=== PATIENT | female | born 1965 | race Hispanic/Latino ===

== ENCOUNTER 2018-08-29 01:33 | Emergency (ER) | payer SELFPAY ==
[2018-08-29] MEDS ORDERED: Acetaminophen 500 MG TAB ONE (03:02)
[2018-08-29] MEDS ORDERED: Ibuprofen 800 MG TAB ONE (03:05)
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
== END 2018-08-29 03:27 | disposition home or self-care (01) ==
LOC: ERS 01:33
DX: S05.11XA Contusion of eyeball and orbital tissues, right eye, initial encounter (principal); I10 Essential (primary) hypertension; G43.909 Migraine, unspecified, not intractable, without status migrainosus; Y04.0XXA Assault by unarmed brawl or fight, initial encounter
CPT/HCPCS: 70450; 70486

== ENCOUNTER 2019-05-15 18:35 | Emergency (ER) | payer BC ==
[2019-05-15] MEDS ORDERED: Ibuprofen 200 MG TAB ONE (19:33)
== END 2019-05-15 20:53 | disposition home or self-care (01) ==
LOC: ERS 18:35
DX: J10.1 Influenza due to other identified influenza virus with other respiratory manifestations (principal)
CPT/HCPCS: 87804; 99283

== ENCOUNTER 2020-10-11 08:02 | Outpatient (CLI) | payer BC ==
[2020-10-11] MEDS ORDERED: Magnevist 469MG/ML 20 ML VIAL ONE (15:09)
== END 2020-10-11 08:03 | disposition home or self-care (01) ==
LOC: BICMRI 08:02
PROVIDERS: ATTEND Physician Assistant Medical
DX: K74.60 Unspecified cirrhosis of liver (principal); R10.11 Right upper quadrant pain; I85.10 Secondary esophageal varices without bleeding; K76.6 Portal hypertension; R16.1 Splenomegaly, not elsewhere classified
CPT/HCPCS: 74183; A9579

== ENCOUNTER 2021-06-18 08:13 | Outpatient (CLI) | payer OTHER | END 2021-06-18 08:14 | disposition home or self-care (01) | LOC: BICRAD 08:13 | PROVIDERS: ATTEND Chiropractor | DX: M25.552 Pain in left hip (principal); M47.816 Spondylosis without myelopathy or radiculopathy, lumbar region | CPT/HCPCS: 72100 ==

== ENCOUNTER 2021-12-07 08:27 | Emergency (ER) | payer BC, SELFPAY ==
[2021-12-07] MEDS ORDERED: Ketorolac Tromethamine 30 MG/ML VIAL ONE (09:33)
== END 2021-12-07 09:42 | disposition home or self-care (01) ==
LOC: ERS 08:27
DX: M25.561 Pain in right knee (principal); I10 Essential (primary) hypertension
CPT/HCPCS: 96372; J1885

== ENCOUNTER 2022-01-12 21:49 | Emergency (ER) | payer OTHER, SELFPAY ==
[2022-01-12] MEDS ORDERED: Ondansetron ODT 4 MG TAB ONE (22:08)
== END 2022-01-12 22:49 | disposition home or self-care (01) ==
LOC: ERS 21:49
DX: S00.03XA Contusion of scalp, initial encounter (principal); S06.0X0A Concussion without loss of consciousness, initial encounter; W01.10XA Fall on same level from slipping, tripping and stumbling with subsequent striking against unspecified object, initial encounter
CPT/HCPCS: 70450; Q0162

== ENCOUNTER 2022-02-12 21:10 | Emergency (ER) | payer SELFPAY ==
[2022-02-12] MEDS ORDERED: HYDROcodone/Acetaminophen 10/325 mg Tablet ONE (22:32)
[2022-02-12] MEDS ORDERED: Bacitracin 1 PK ONE (23:18)
== END 2022-02-12 23:32 | disposition home or self-care (01) ==
LOC: ERS 21:10
DX: T22.20XA Burn of second degree of shoulder and upper limb, except wrist and hand, unspecified site, initial encounter (principal); I10 Essential (primary) hypertension; X10.2XXA Contact with fats and cooking oils, initial encounter
CPT/HCPCS: 99283

== ENCOUNTER 2022-06-29 07:07 | Emergency (ER) | payer SELFPAY ==
[2022-06-29 07:51] LABS: Hemoglobin 14.7 g/dL (12.0-16.0); Mean Corpuscular HGB CONC 35.4 g/dL (32.0-36.0); Mean Corpuscular Hemoglobin 33.3 pg (27.0-31.0); Mean Corpuscular Volume 93.9 fl (78.0-98.0); Red Blood Cell (RBC) Count 4.43 mill/uL (4.20-5.40)
[2022-06-29] MEDS ORDERED: Ondansetron PF 4 MG/2 ML Vial ONE (07:54)
[2022-06-29] MEDS ORDERED: Acetaminophen 500 MG TAB ONE (07:54)
[2022-06-29 08:06] LABS: ALT (SGPT) 26 U/L (8-55); AST (SGOT) 37 U/L (5-34); Albumin 4.1 g/dL (3.5-5.0); Alkaline Phosphatase 88 U/L (40-110); Anion Gap 15 mmol/L (10-20); BUN (Urea Nitrogen) 16 mg/dL (9.8-20.1); Bilirubin, Total 1.1 mg/dL (0.2-1.2); Calc. Creatinine Clearance 0 mL/min (70-130); Calcium 8.6 mg/dL (7.8-10.44); Carbon Dioxide 22 mmol/L (22-29); Chloride 104 mmol/L (98-107); Estimated GFR 79; Globulin 3.2 g/dL (2.4-3.5); Glucose 121 mg/dL (70-105); Potassium 3.6 mmol/L (3.5-5.1); Protein, Total 7.3 g/dL (6.0-8.3); Sodium 137 mmol/L (136-145)
[2022-06-29 08:21] LABS: #Lymphocytes 0.7 thou/uL (1.20-3.40); #Monocytes 0.6 thou/uL (0.11-0.59); #Neutrophils 2.7 thou/uL (1.40-6.50); %Eosinophils 0.7 % (0.0-10.0); %Lymphocytes 17.7 % (21.0-51.0); %Monocytes 14.1 % (0.0-10.0); %Neutrophils 67.5 % (42.0-75.0); Mean Platelet Volume 8.2 fL (7.4-10.4); Platelet Count 81 10x3/uL (130-400); Platelet Morphology Comment Appears Decreased; White Blood Cell (WBC) Count 4.1 10x3/uL (4.8-10.8)
[2022-06-29 08:30] LABS: SARS-CoV-2 NAA Rapid Test DETECTED (NotDetected)
[2022-06-29] MEDS ORDERED: Ketorolac Tromethamine 30 MG/ML VIAL ONE (08:56)
[2022-06-29 10:13] LABS: Bacteria/HPF None Seen HPF (None Seen); Bilirubin Negative (Negative); Blood, Urine Trace (Negative); Clarity Clear (Clear); Glucose, Urine (Dipstick) Normal (Negative); Ketone, Urine Negative (Negative); Leukocyte Negative Leu/uL (Negative); Nitrite Negative (Negative); Protein, Urine (Dipstick) Negative (Neg-Trace); RBC/HPF 0-3 HPF (0-3); Specific Gravity, Urine 1.008 (1.002-1.036); Squamous Epithelial None Seen HPF (0-3); Urobilinogen Normal mg/dL (Less than 2); WBC/HPF 0-3 HPF (0-3); pH, Urine 6.5 (5.0-9.0)
== END 2022-06-29 11:04 | disposition home or self-care (01) ==
LOC: ERS 07:07
DX: U07.1 COVID-19 (principal); I10 Essential (primary) hypertension
CPT/HCPCS: 36415; 71045; 80053; 81003; 81015; 83605; 85025; 87040; 87086; 93005; 96374; 96375; J1885; J2405

== ENCOUNTER 2023-03-29 20:25 | Emergency (ER) | payer SELFPAY ==
[2023-03-29] MEDS ORDERED: Dexameth. Sod Phosp. 10 MG/ML (CHEMO USE ONLY) ONE (23:28)
[2023-03-29 23:32] LABS: #Eosinphils 0.3 thou/uL (0.0-0.7); #Monocytes 0.4 thou/uL (0.11-0.59); #Neutrophils 3.4 thou/uL (1.40-6.50); %Basophils 0.3 % (0.0-1.0); %Eosinophils 4.2 % (0.0-10.0); %Monocytes 6.3 % (0.0-10.0); Hematocrit 39.2 % (36.0-47.0); Hemoglobin 13.7 g/dL (12.0-16.0); Mean Corpuscular HGB CONC 34.9 g/dL (32.0-36.0); Mean Corpuscular Hemoglobin 32.5 pg (27.0-31.0); Mean Corpuscular Volume 93.1 fl (78.0-98.0); Platelet Count 123 10x3/uL (130-400); RBC Distribution Width 13.3 % (11.5-14.5); Red Blood Cell (RBC) Count 4.21 mill/uL (4.20-5.40); White Blood Cell (WBC) Count 6.2 10x3/uL (4.8-10.8)
[2023-03-29 23:56] LABS: ALT (SGPT) 24 U/L (8-55); AST (SGOT) 36 U/L (5-34); Albumin 4.3 g/dL (3.5-5.0); Alkaline Phosphatase 122 U/L (40-110); Anion Gap 12 mmol/L (10-20); BUN (Urea Nitrogen) 18 mg/dL (9.8-20.1); Bilirubin, Total 0.4 mg/dL (0.2-1.2); Calc. Creatinine Clearance 0 mL/min (70-130); Carbon Dioxide 25 mmol/L (22-29); Chloride 107 mmol/L (98-107); Estimated GFR 89; Globulin 2.9 g/dL (2.4-3.5); Glucose 104 mg/dL (70-105); Lipase 51 U/L (8-78); Potassium 3.7 mmol/L (3.5-5.1); Protein, Total 7.2 g/dL (6.0-8.3); Sodium 140 mmol/L (136-145)
[2023-03-30 00:45] LABS: CellaVision Operator ID LAB.JMM; Macrocytosis SLIGHT = 6-15 cells HPF (0-5); Platelet Adequacy Comment Platelets Decreased
== END 2023-03-30 01:14 | disposition home or self-care (01) ==
LOC: ERS 20:25
DX: T78.40XA Allergy, unspecified, initial encounter (principal); X58.XXXA Exposure to other specified factors, initial encounter
CPT/HCPCS: 36415; 80053; 83690; 85025; 96372; 99283; J1100

== ENCOUNTER 2023-12-11 15:51 | Emergency (ER) | payer OTHER ==
[2023-12-11 16:32] LABS: #Basophils Less than 0.03 10x3/uL (0.0-0.2); %Basophils 0.3 % (0.0-1.0); %Eosinophils 3.3 % (0.0-10.0); %Lymphocytes 36.9 % (21.0-51.0); %Monocytes 5.9 % (0.0-10.0); %Neutrophils 53.3 % (42.0-75.0); Hematocrit 39.8 % (36.0-47.0); Hemoglobin 14.2 g/dL (12.0-16.0); Mean Corpuscular HGB CONC 35.7 g/dL (32.0-36.0); Mean Corpuscular Hemoglobin 32.2 pg (27.0-31.0); Mean Corpuscular Volume 90.2 fL (78.0-98.0); Mean Platelet Volume 10.5 fL (7.4-10.4); Platelet Count 129 10x3/uL (130-400); Red Blood Cell (RBC) Count 4.41 mill/uL (4.20-5.40)
[2023-12-11 16:43] LABS: ALT (SGPT) 25 U/L (8-55); AST (SGOT) 35 U/L (5-34); Albumin 4.3 g/dL (3.5-5.0); Alkaline Phosphatase 92 U/L (40-110); Anion Gap 14 mmol/L (10-20); BUN (Urea Nitrogen) 16 mg/dL (9.8-20.1); Bilirubin, Total 1.2 mg/dL (0.2-1.2); CK (CPK) 266 U/L (29-168); Calc. Creatinine Clearance 0 mL/min (70-130); Calcium 9.6 mg/dL (7.8-10.44); Carbon Dioxide 23 mmol/L (22-29); Chloride 110 mmol/L (98-107); Estimated GFR 87; Globulin 3.2 g/dL (2.4-3.5); Glucose 81 mg/dL (70-105); Potassium 4.2 mmol/L (3.5-5.1); Protein, Total 7.5 g/dL (6.0-8.3); Sodium 143 mmol/L (136-145)
[2023-12-11 16:44] LABS: Troponin I Less than 0.010 ng/mL (< 0.028)
== END 2023-12-11 17:33 | disposition home or self-care (01) ==
LOC: ERS 15:51
DX: F41.9 Anxiety disorder, unspecified (principal); R21 Rash and other nonspecific skin eruption; I10 Essential (primary) hypertension
CPT/HCPCS: 36415; 71045; 80053; 82550; 84443; 84484; 85025; 93005